=== PATIENT | female | born 1990 | race Caucasian/White ===

== ENCOUNTER 2018-03-30 18:57 | Emergency (ER) | payer SELFPAY ==
[2018-03-30 19:15] VITALS: O2SAT 98
[2018-03-30] MEDS ORDERED: CEPHALEXIN MONOHYDRATE 500 MG CAP PO ONE (19:42)
--- NOTE | 2018-03-30 19:48 | ED.PDOC ---
History of Present Illness - General Chief Complaint: Bite: Animal/Insect/Human Stated Complaint: insect bite to left upper chest Time Seen by Provider: 03/30/18 19:21 Source: patient Exam Limitations: no limitations - History of Present Illness Initial Comments: Patient presents with an insect bite to the upper left chest for three days. It started off painful then developed a pustule. She was rubbing it with some herbal remedies and the pustule broke off. It is not pruritic. She has a history of a gluteal abscess but says it was not "Staph". No other complaints. Timing/Duration: other - 3 days Severity: mild Improving Factors: nothing Worsening Factors: nothing Associated Symptoms: denies symptoms Allergies/Adverse Reactions: Allergies NO KNOWN ALLERGY Allergy (Verified 03/30/18 19:16) Home Medications: Ambulatory Orders Amphetamine-Dextroamphetamine [Adderall] 1 tab PO 03/30/18 Cephalexin Monohydrate [Keflex] 500 mg PO BID #13 cap 03/30/18 Review of Systems - Review of Systems Constitutional: States: no symptoms reported EENTM: States: no symptoms reported Respiratory: States: no symptoms reported Cardiology: States: no symptoms reported Gastrointestinal/Abdominal: States: no symptoms reported Genitourinary: States: no symptoms reported Musculoskeletal: States: no symptoms reported Skin: States: see HPI Neurological: States: no symptoms reported Endocrine: States: no symptoms reported Hematologic/Lymphatic: States: no symptoms reported Past Medical History (General) - Patient Medical History Hx Diabetes: No Surgical History: tonsillectomy - Vaccination History Hx Influenza Vaccination: No - Female History Patient is a Female of Child Bearing Age (10 -59 yrs old): Yes Patient : No Family Medical History - Family History Mother Family History: Unknown Physical Exam - Physical Exam General Appearance: Alert Respiratory: lungs clear, normal breath sounds Cardiovascular/Chest: regular rate, rhythm Gastrointestinal/Abdominal: normal bowel sounds, non tender, soft Skin Exam: other - quarter size blanching erythmatic circular lesion with a 0.5 cm center of excoriation on the left upper chest. Mildly TTP. No exudates. Progress - Progress Progress: 03/30/18 19:49 Wound cleaned and dressed. Keflex 500 mg po x one given in the E.D. RX sent for 7 days. Care instructions given. E.R. warnings given. Questions were elicited and answered. Patient voiced understanding and agreement with the plan. Departure - Departure Clinical Impression: Insect bites Disposition: Discharge to Home or Self Care Condition: Good Departure Forms: ED Discharge - Pt. Copy, Patient Portal Self Enrollment Instructions: DI for Insect Bites and Stings Diet: resume usual diet Activity: increase activity as tolerated Prescriptions: Cephalexin Monohydrate [Keflex] 500 mg PO BID #13 cap Home Medications: Ambulatory Orders Amphetamine-Dextroamphetamine [Adderall] 1 tab PO 03/30/18 Cephalexin Monohydrate [Keflex] 500 mg PO BID #13 cap 03/30/18 Additional Instructions: Apply neosporin to the wound twice per day until healed. Take prescription as directed. Return to the E.R. for worsening infection, pus, or worsening pain. Return to your regular doctor or the E.R. if the wound has not healed in 7-10 days.
[2018-03-30] MEDS ORDERED: NEOMYCIN-BACITRACIN-POLYMYXIN 0.9 GM UD TOP ONE (19:49)
[2018-03-30 19:57] VITALS: BP 139/102; TEMP 98
== END 2018-03-30 19:57 | disposition home or self-care (01) ==
LOC: ER 18:57
DX: S20.362A Insect bite (nonvenomous) of left front wall of thorax, initial encounter (principal); W57.XXXA Bitten or stung by nonvenomous insect and other nonvenomous arthropods, initial encounter; Y92.9 Unspecified place or not applicable